=== PATIENT | male | born 1980 | race Caucasian/White ===

== ENCOUNTER 2019-08-03 15:22 | Emergency (ER) | payer MEDICAID ==
[~2019-08-03] VITALS: Ht 180.3 cm; Wt 93.6 kg
[2019-08-03 15:26] VITALS: BP 127/80
[2019-08-03] MEDS ORDERED: HYDROcodone/APAP 5/325 MG 1 TAB TAB PO ONE (16:05)
[2019-08-03] MEDS ORDERED: ONDANSETRON 4 MG ODT PO ONE (16:05)
[2019-08-03] MEDS ORDERED: KETOROLAC 60 MG/2 ML VIAL IM ONE (16:05)
[2019-08-03 17:26] VITALS: BP 130/89
== END 2019-08-03 17:26 | disposition home or self-care (01) ==
LOC: MED 15:22
DX: S39.012A Strain of muscle, fascia and tendon of lower back, initial encounter (principal); M48.56XA Collapsed vertebra, not elsewhere classified, lumbar region, initial encounter for fracture; X58.XXXA Exposure to other specified factors, initial encounter; Y92.89 Other specified places as the place of occurrence of the external cause; Y93.89 Activity, other specified; Y99.8 Other external cause status
CPT/HCPCS: 72100; 81002; 96372; 99283; J1885; Q0162